=== PATIENT | female | born 1965 | race Caucasian/White ===

== ENCOUNTER → 2018-06-04 15:25 | Outpatient (CLI) | payer OTHER, SELFPAY ==
--- NOTE | 2018-06-04 15:28 | DI.RAD.S_ITS ---
PROCEDURE: XR CERVICAL SPINE 2V OR 3V INDICATIONS: Neck and low back pain TECHNIQUE: 3 view(s) of the cervical spine were acquired. COMPARISON: None. FINDINGS: Bones: No fractures or dislocations to the T1 level. The lateral masses of C1 appear intact on the odontoid view. No suspicious bony lesions. Loss of lordosis which could be related to muscle spasm, rigidity or simply positional. Grade 1 retrolisthesis C5-C6. Multilevel disc degeneration, moderate at the C6-C7 and C7-T1 levels. Mild multilevel uncovertebral hypertrophy. Soft tissues: No prevertebral soft tissue swelling. IMPRESSION: Loss of lordosis and multilevel degenerative change of the cervical spine. Dictated by: Armando Rueda Alfredo Interpreted: Dave Torres MD on 06/04/2018 at 15:57 Approved by: Dave Torres M.D. on 06/04/2018 at 16:45
--- NOTE | 2018-06-04 15:28 | DI.RAD.S_ITS ---
PROCEDURE: XR LUMBAR SPINE 2-3V INDICATIONS: Neck and low back pain TECHNIQUE: 3 views of the lumbar spine were acquired. COMPARISON: [facility], , L-SPINE 2-3 VIEWS, 11/12/2013, 12:23. FINDINGS: Bones: 5 [id number] vertebrae are present. Mild dextroscoliosis centered at the thoracolumbar level. Trace multilevel retrolisthesis. Multilevel disc degeneration, mild in degree. Moderate L5-S1 facet joint arthropathy. No vertebral body compression fractures. No suspicious bony lesions. Soft tissues: Overlying bowel gas pattern is normal. No suspicious soft tissue calcifications. IMPRESSION: Multilevel degenerative change similar to previous plain film series dated 11/12/13. Dictated by: Armando Rueda [facility] Interpreted: Dave Torres MD on 06/04/2018 at 15:54 Approved by: Dave Torres M.D. on 06/04/2018 at 16:46
== END ==
PROVIDERS: Family Provider Physician Assistant; PCP Physician Assistant; Visit Provider Physician Assistant
DX: M50.323 Other cervical disc degeneration at C6-C7 level (principal); M51.36 Other intervertebral disc degeneration, lumbar region; M54.5 Low back pain; R20.8 Other disturbances of skin sensation; M62.838 Other muscle spasm
CPT/HCPCS: 72040; 72100

== ENCOUNTER → 2018-06-09 07:56 | Outpatient (CLI) | payer OTHER, SELFPAY ==
[2018-06-09 09:16] LABS: Cholesterol 196 mg/dL (140-199); HDL Cholesterol 74 mg/dL (40-60); LDL Cholesterol Calculated 113 mg/dL (<100); Triglycerides 47 mg/dL (35-150)
== END ==
PROVIDERS: Family Provider Physician Assistant; PCP Physician Assistant; Visit Provider Physician Assistant
DX: Z13.6 Encounter for screening for cardiovascular disorders (principal); Z13.220 Encounter for screening for lipoid disorders
CPT/HCPCS: 36415; 80061

== ENCOUNTER → 2018-06-26 14:11 | Outpatient (CLI) | payer OTHER, SELFPAY ==
--- NOTE | 2018-06-26 14:12 | DI.MRI.S_ITS ---
PROCEDURE: MR CERVICAL SPINE WO CON INDICATIONS: Neck pain radiating into right shoulder/upper back TECHNIQUE: Noncontrast sagittal T1 spin echo and T2 fast spin echo, sagittal STIR, foraminal oblique sagittal T2 fast spin echo, and axial gradient echo or T2 fast spin echo through the cervical spine. COMPARISON: [facility], CR, XR CERVICAL SPINE 2V OR 3V, 06/04/2018, 15:09. [facility], RG, XR C-SPINE 4-6V, 11/25/2002, 10:56. FINDINGS: Image quality: Diagnostic, with note made of motion artifact. Alignment and Curvature: There is reversal of the normal cervical lordosis Bone Marrow: Marrow demonstrates normal overall signal. Spinal Cord: Visualized spinal cord has normal size and signal. No cerebellar tonsillar herniation. Paraspinous Soft Tissues: No paravertebral masses. Prevertebral soft tissues are normal in thickness. C2-C3: Normal appearance. C3-C4: No significant abnormality is seen. C4-C5: The disc height is well-preserved. Loss of disc signal is seen at this level. There is mild left-sided and no significant right-sided neural foraminal narrowing seen. [id number]-[id number] central canal narrowing is seen. C5-C6: Moderate loss of disc height is seen. Loss of disc signal is seen. Moderate to prominent disc osteophyte complex is seen at this level. There is moderate to severe right-sided and moderate left-sided neural foraminal narrowing seen. Moderate to severe central canal narrowing is seen, with associated mass effect upon the ventral spinal cord, as on series 5 image 30. C6-C7: Moderate disc osteophyte complex is seen, which is eccentric to the left. There is moderate left-sided and mild to moderate right-sided neural foraminal narrowing seen. [id number]-[id number] central canal narrowing is seen at this level. C7-T1: The disc height and disk signal are well-preserved. A mild degree of generalized disc osteophyte complex is seen. No significant neural foraminal or central canal narrowing are seen. IMPRESSION: Cervical spine degenerative changes are seen, which are worst at the C5-C6 level. Dictated by: Hiren Valadez M.D. on 06/26/2018 at 15:21 Approved by: Hiren Valadez M.D. on 06/26/2018 at 15:24
== END ==
PROVIDERS: Family Provider Physician Assistant; PCP Physician Assistant; Visit Provider Physician Assistant
DX: M50.122 Cervical disc disorder at C5-C6 level with radiculopathy (principal); M54.2 Cervicalgia; M79.621 Pain in right upper arm; R93.8 Abnormal findings on diagnostic imaging of other specified body structures
CPT/HCPCS: 72141

== ENCOUNTER → 2018-10-19 13:02 | Outpatient (CLI) | payer OTHER, SELFPAY ==
--- NOTE | 2018-10-19 | DI.MRI.S_ITS ---
PROCEDURE: MR LUMBAR SPINE WO CON INDICATIONS: Radiculopathy, Spondylosis without myelopathy or radiculopathy TECHNIQUE: Noncontrast sagittal T1 spin echo and T2 fast echo, sagittal STIR, axial T1 and T2 fast spin echo through the lumbar spine. In cases with scoliosis, additional coronal T2 fast spin echo may be performed. COMPARISON: [facility], MR, L-SPINE WITHOUT CONTRAST, 12/09/2014, 18:57. [facility], CR, XR LUMBAR SPINE 2-3V, 06/04/2018, 15:09. [facility], MR, L-SPINE WITHOUT CONTRAST, 11/30/2013, 14:26. FINDINGS: Image quality: Diagnostic, with note made of motion artifact. Alignment and Curvature: Mild dextroconvex scoliotic curvature is seen. Bone Marrow: Marrow is of normal overall signal. No acute vertebral body compression fractures. Spinal Cord: Conus medullaris terminates at the L1 level. Visualized cord demonstrates normal signal and size. Paraspinous Soft Tissues: No paravertebral masses. T12-L1: No significant abnormality is seen. L1-L2: Mild to moderate loss of disc height and disc signal are seen. Mild to moderate disc bulge is seen. There is mild to moderate left-sided and no significant right-sided neural foraminal narrowing seen. Mild central canal narrowing is seen. When comparison is made with the prior examination, these findings are similar. L2-L3: Mild loss of disc height is seen. Loss of disc signal is seen. Mild to moderate disc bulge is seen. Mild to moderate facet hypertrophy is seen. There is mild to moderate left-sided and mild right-sided neural foraminal narrowing seen. Mild central canal narrowing is seen. Stable from the prior study. L3-L4: The disc height and disc signal are relatively well-preserved. Moderate loss of disc height is seen. Loss of disc signal is seen. No significant neural foraminal narrowing is seen. No significant central canal narrowing. No significant change from the prior. L4-L5: Mild loss of disc height is seen. Loss of disc signal is seen. Moderate generalized disc bulge is seen. There is mild to moderate left-sided and minimal right-sided neural foraminal narrowing seen. Mild to moderate central canal narrowing is seen. The degree of central canal narrowing has clearly improved compared to the prior examination, with progression of the previously seen disc extrusion. L5-S1: The disc height and disc signal are relatively well-preserved. Mild generalized disc bulge is seen. Moderate to prominent right-sided and moderate left-sided facet hypertrophy is seen. Moderate bilateral neural foraminal narrowing is seen. Mild to moderate central canal narrowing is seen. When comparison is made with the prior examination, these findings are similar. IMPRESSION: Interval improvement at the L4-L5 level, with progression of the previously seen disc extrusion. Multiple levels of degenerative change are seen, which are otherwise similar. Mild dextroconvex scoliotic curvature. Dictated by: Hiren Valadez M.D. on 10/19/2018 at 13:38 Approved by: Hiren Valadez M.D. on 10/19/2018 at 13:45
== END ==
PROVIDERS: Family Provider Physician Assistant; PCP Physician Assistant; Visit Provider Neurological Surgery
DX: M47.26 Other spondylosis with radiculopathy, lumbar region (principal); M47.27 Other spondylosis with radiculopathy, lumbosacral region
CPT/HCPCS: 72148

== ENCOUNTER → 2019-08-13 13:05 | Outpatient (CLI) | payer OTHER, SELFPAY | PROVIDERS: Family Provider Physician Assistant; PCP Physician Assistant; Visit Provider Physician Assistant | DX: Z78.0 Asymptomatic menopausal state (principal); E28.39 Other primary ovarian failure; Z82.62 Family history of osteoporosis | CPT/HCPCS: 77080 ==

== ENCOUNTER → 2019-08-14 08:25 | Outpatient (CLI) | payer OTHER, SELFPAY ==
[2019-08-14 09:06] LABS: Alanine Aminotransferase 13 IU/L (<35); Albumin 4.4 g/dL (3.5-5.0); Albumin Globulin Ratio 1.6 (1.0-2.8); Alkaline Phosphatase 54 U/L (38-126); Aspartate Aminotransferase 26 IU/L (14-36); BUN Creatinine Ratio 18.3 (6-22); Bilirubin Total 0.6 mg/dL (0.2-1.3); Blood Urea Nitrogen 11 mg/dL (7-17); Calcium 9.4 mg/dL (8.4-10.2); Carbon Dioxide 26 mmol/L (22-32); Chloride 100 mmol/L (98-107); Cholesterol 210 mg/dL (140-199); Estimated Glomerular Filt Rate > 60.0 mL/min (>60); Globulin 2.8 g/dL (1.7-4.1); Glucose 93 mg/dL (70-100); HDL Cholesterol 63 mg/dL (40-60); HEMOLYSIS < 15 (0-50); LDL Cholesterol Calculated 130 mg/dL (<100); Sodium 137 mmol/L (137-145); Total Protein 7.2 g/dL (6.3-8.2); Triglycerides 83 mg/dL (35-150)
== END ==
PROVIDERS: Family Provider Physician Assistant; PCP Physician Assistant; Visit Provider Physician Assistant
DX: E78.5 Hyperlipidemia, unspecified (principal); I49.9 Cardiac arrhythmia, unspecified
CPT/HCPCS: 36415; 80053; 80061

== ENCOUNTER → 2021-07-19 08:51 | Outpatient (CLI) | payer OTHER, SELFPAY ==
[2021-07-19 09:44] LABS: Add Manual Diff / Slide Review NO; Basophils Absolute Auto 0 /uL (0-100); Basophils Percent Auto 0.9 % (0-2); Eosinophils Absolute Auto 100 /uL (0-450); Eosinophils Percent Auto 1.2 % (2-4); Hematocrit 38.2 % (36-46); Hemoglobin 12.6 g/dL (12.0-16.0); Lymphocytes Absolute Auto 2100 /uL (1100-4500); Lymphocytes Percent Auto 39.7 % (25-40); Mean Corpuscular Hemoglobin 30.1 PG (26-34); Mean Corpuscular Volume 91.2 fL (80-100); Monocytes Absolute Auto 400 /uL (0-900); Neutrophils Absolute Auto 2700 /uL (1500-7000); Neutrophils Percent Auto 50.2 % (50-75); Platelet Count 255 X10^3/uL (150-400); Red Blood Cell Count 4.19 X10^6/uL (4.0-5.2); Red Cell Distribution Width 13.3 % (11.6-14.8); White Blood Cell Count 5.4 X10^3/uL (4.5-11.0)
[2021-07-19 10:07] LABS: Alanine Aminotransferase 20 IU/L (<35); Albumin 4.4 g/dL (3.5-5.0); Albumin Globulin Ratio 1.5 (1.0-2.8); Alkaline Phosphatase 57 U/L (38-126); Aspartate Aminotransferase 31 IU/L (14-36); BUN Creatinine Ratio 22.6 (6-22); Bilirubin Total 0.3 mg/dL (0.2-1.3); Blood Urea Nitrogen 12 mg/dL (7-17); Calcium 9.5 mg/dL (8.4-10.2); Carbon Dioxide 29 mmol/L (22-32); Chloride 100 mmol/L (98-107); Cholesterol 225 mg/dL (140-199); Estimated Glomerular Filt Rate > 60.0 mL/min (>60); Globulin 2.9 g/dL (1.7-4.1); Glucose 94 mg/dL (70-100); HDL Cholesterol 67 mg/dL (40-60); HEMOLYSIS < 15 (0-50); LDL Cholesterol Calculated 143 mg/dL (<100); Potassium 3.9 mmol/L (3.4-5.1); Sodium 136 mmol/L (137-145); Total Protein 7.3 g/dL (6.3-8.2); Triglycerides 76 mg/dL (35-150)
[2021-07-19 10:35] LABS: TSH w/ Reflex to FT4 2.52 uIU/mL (0.47-4.68)
== END ==
PROVIDERS: Family Provider Physician Assistant; PCP Registered Nurse Diabetes Educator; Referring Provider Registered Nurse Diabetes Educator; Visit Provider Registered Nurse Diabetes Educator
DX: E78.5 Hyperlipidemia, unspecified (principal); R53.83 Other fatigue
CPT/HCPCS: 36415; 80053; 80061; 84443; 85025

== ENCOUNTER → 2021-10-30 12:04 | Outpatient (CLI) | payer OTHER, SELFPAY ==
--- NOTE | 2021-10-30 12:05 | DI.RAD.S_ITS ---
PROCEDURE: XR LUMBAR SPINE MIN 4V INDICATIONS: eval worsening RLE numbness/weakness TECHNIQUE: 5 views of the lumbar spine were acquired, including bilateral oblique views. COMPARISON: [facility], , XR LUMBAR SPINE 2-3V, 06/04/2018, 15:09. FINDINGS: Bones: 5 nonrib-bearing vertebrae are present. Stable alignment with mild dextrocurvature centered at L2-3. No acute vertebral body compression fractures. No suspicious bony lesions. Multilevel lumbar spondylosis and associated facet arthropathy. Findings are again most pronounced in the upper lumbar spine. Soft tissues: Overlying bowel gas pattern is normal. No suspicious soft tissue calcifications. Oblique images: No pars defects. IMPRESSION: Lumbar spine without acute osseous abnormalities. Stable appearance of multilevel lumbar spondylosis. Stable alignment with mild dextro curvature centered at L2-3. Dictated by: Aly Garces M.D. on 10/30/2021 at 17:21 Approved by: Aly Garces M.D. on 10/30/2021 at 17:23
== END ==
PROVIDERS: Family Provider Physician Assistant; PCP Registered Nurse Diabetes Educator; Referring Provider Registered Nurse Diabetes Educator; Visit Provider Registered Nurse Diabetes Educator
DX: M47.816 Spondylosis without myelopathy or radiculopathy, lumbar region (principal); M51.36 Other intervertebral disc degeneration, lumbar region
CPT/HCPCS: 72110

== ENCOUNTER → 2022-08-22 17:41 | Outpatient (CLI) | payer OTHER, SELFPAY ==
--- NOTE | 2022-08-22 18:23 | DI.RAD.S_ITS ---
PROCEDURE: XR CHEST 2V INDICATIONS: Cough TECHNIQUE: 2 views of the chest were acquired. COMPARISON: None. FINDINGS: Surgical changes and devices: None. Lungs and pleura: Lungs are clear. No pleural effusions or pneumothorax. Mediastinum: Mediastinal contours are normal. Heart size is normal. Bones and chest wall: No suspicious bony abnormalities. Soft tissues appear unremarkable. IMPRESSION: No acute cardiopulmonary pathology. Dictated by: Tone Connor M.D. on 08/23/2022 at 13:05 Approved by: Tone Connor M.D. on 08/23/2022 at 13:06
[2022-08-22 18:56] LABS: Influenza A - CEPHEID Flu A NEGATIVE (NEGATIVE); Influenza B - CEPHEID Flu B NEGATIVE (NEGATIVE); Respiratory Syncytial Virus POSITIVE (Negative)
[2022-08-22 18:57] LABS: COVID-19 CEPHEID 4-PLEX PCR Negative (Negative)
== END ==
PROVIDERS: Family Provider Physician Assistant; PCP Family Medicine; Referring Provider Nurse Practitioner Family; Visit Provider Nurse Practitioner Family
DX: R50.9 Fever, unspecified (principal); R05.9 Cough, unspecified
CPT/HCPCS: 0241U; 71046

== ENCOUNTER → 2022-09-18 08:56 | Outpatient (CLI) | payer OTHER, SELFPAY ==
[2022-09-18 09:20] LABS: Add Manual Diff / Slide Review NO; Basophils Absolute Auto 0 /uL (0-100); Basophils Percent Auto 0.8 % (0-2); Eosinophils Absolute Auto 100 /uL (0-450); Eosinophils Percent Auto 2.7 % (2-4); Hematocrit 35.1 % (36-46); Lymphocytes Absolute Auto 1800 /uL (1100-4500); Lymphocytes Percent Auto 36.6 % (25-40); Mean Corpuscular HGB Conc 34.2 % (30-36); Mean Corpuscular Hemoglobin 30.8 PG (26-34); Monocytes Absolute Auto 500 /uL (0-900); Monocytes Percent Auto 9.3 % (3-14); Neutrophils Absolute Auto 2500 /uL (1500-7000); Neutrophils Percent Auto 50.6 % (50-75); Platelet Count 227 X10^3/uL (150-400); Red Cell Distribution Width 12.7 % (11.6-14.8); White Blood Cell Count 4.9 X10^3/uL (4.5-11.0)
[2022-09-18 09:43] LABS: Alanine Aminotransferase 20 IU/L (<35); Albumin 3.9 g/dL (3.5-5.0); Albumin Globulin Ratio 1.4 (1.0-2.8); Alkaline Phosphatase 54 U/L (38-126); Aspartate Aminotransferase 24 IU/L (14-36); BUN Creatinine Ratio 18.2 (6-22); Bilirubin Total 0.4 mg/dL (0.2-1.3); Blood Urea Nitrogen 12 mg/dL (7-17); Carbon Dioxide 27 mmol/L (22-32); Chloride 98 mmol/L (98-107); Cholesterol 212 mg/dL (140-199); Estimated Glomerular Filt Rate > 60 mL/min (>60); Globulin 2.7 g/dL (1.7-4.1); Glucose 92 mg/dL (70-100); HDL Cholesterol 59 mg/dL (40-60); HEMOLYSIS < 15 (0-50); LDL Cholesterol Calculated 135 mg/dL (<100); Potassium 4.1 mmol/L (3.4-5.1); Sodium 131 mmol/L (137-145); Total Protein 6.6 g/dL (6.3-8.2); Triglycerides 90 mg/dL (35-150)
== END ==
PROVIDERS: Family Provider Physician Assistant; PCP Family Medicine; Referring Provider Family Medicine; Visit Provider Family Medicine
DX: E78.5 Hyperlipidemia, unspecified (principal)
CPT/HCPCS: 36415; 80053; 80061; 85025

== ENCOUNTER → 2023-07-04 08:36 | Outpatient (CLI) | payer OTHER, SELFPAY ==
[2023-07-04 08:59] LABS: Add Manual Diff / Slide Review NO; Basophils Absolute Auto 0 /uL (0-100); Basophils Percent Auto 0.8 % (0-2); Eosinophils Absolute Auto 100 /uL (0-450); Eosinophils Percent Auto 1.1 % (2-4); Hematocrit 36.3 % (36-46); Hemoglobin 12.3 g/dL (12.0-16.0); Lymphocytes Absolute Auto 2100 /uL (1100-4500); Lymphocytes Percent Auto 42.6 % (25-40); Mean Corpuscular HGB Conc 33.8 % (30-36); Mean Corpuscular Volume 91.7 fL (80-100); Monocytes Absolute Auto 500 /uL (0-900); Monocytes Percent Auto 10.3 % (3-14); Neutrophils Absolute Auto 2200 /uL (1500-7000); Neutrophils Percent Auto 45.2 % (50-75); Platelet Count 238 X10^3/uL (150-400); Red Blood Cell Count 3.96 X10^6/uL (4.0-5.2); Red Cell Distribution Width 12.6 % (11.6-14.8)
[2023-07-04 09:59] LABS: Erythrocyte Sedimentation Rate 16 MM/HR (0-20)
[2023-07-04 17:40] LABS: Alanine Aminotransferase 16 IU/L (<35); Albumin Globulin Ratio 1.4 (1.0-2.8); Alkaline Phosphatase 48 U/L (38-126); Aspartate Aminotransferase 24 IU/L (14-36); BUN Creatinine Ratio 11.9 (6-22); Bilirubin Total 0.5 mg/dL (0.2-1.3); Blood Urea Nitrogen 7 mg/dL (7-17); Calcium 9.6 mg/dL (8.4-10.2); Carbon Dioxide 26 mmol/L (22-32); Chloride 101 mmol/L (98-107); Estimated Glomerular Filt Rate > 60 mL/min (>60); Globulin 2.8 g/dL (1.7-4.1); Glucose 96 mg/dL (70-100); HEMOLYSIS < 15 (0-50); Potassium 4.1 mmol/L (3.4-5.1); Sodium 132 mmol/L (137-145); Total Protein 6.8 g/dL (6.3-8.2)
== END ==
PROVIDERS: Family Provider Physician Assistant; PCP Family Medicine; Referring Provider Physician Assistant; Visit Provider Physician Assistant
DX: K58.0 Irritable bowel syndrome with diarrhea (principal)
CPT/HCPCS: 36415; 80053; 85025; 85651; 86140

== ENCOUNTER → 2023-09-15 11:07 | Outpatient (CLI) | payer OTHER, SELFPAY ==
--- NOTE | 2023-09-15 11:09 | DI.MRI.S_ITS ---
PROCEDURE: MR LUMBAR SPINE WO CON INDICATIONS: worsening radiculopathy and pain TECHNIQUE: Noncontrast sagittal T1 spin echo and T2 fast echo, sagittal STIR, and T2 fast spin echo through the lumbar spine. In cases with scoliosis, additional coronal T2 fast spin echo may be performed. COMPARISON: [facility], MR, MR LUMBAR SPINE WO CON, 10/19/2018, 13:45. FINDINGS: Image quality: Excellent. Alignment and Curvature: There is normal bony alignment. Bone Marrow: L4 vertebral body typical hemangioma Spinal Cord: Conus medullaris terminates at the L1 level. Visualized cord demonstrates normal signal and size. Paraspinous Soft Tissues: No paravertebral masses. T12-L1: Disc space narrowing and posterior disc bulge without central or foraminal stenosis. L1-L2: Disc space narrowing and posterior disc bulge with hypertrophic facet joints. No central or foraminal stenosis. L2-L3: Disc space narrowing and circumferential disc bulge with hypertrophic facet joints combined result in moderate central stenosis. Moderate left and mild right foraminal stenosis L3-L4: Disc space narrowing and circumferential disc bulge with hypertrophic facet joints. Moderate central stenosis. Mild bilateral foraminal stenosis L4-L5: Disc space narrowing and circumferential disc bulge with mild central stenosis. No foraminal stenosis. L5-S1: Disc height is preserved. Hypertrophic facet joints mild disc bulge without central stenosis. No foraminal stenosis. IMPRESSION: Multilevel degenerative disc disease and arthropathy results in varying degrees of central and foraminal stenosis including moderate central stenosis L2-3 and L3-4 Approved by: Tiago Knott M.D. on 09/15/2023 at 14:35
== END ==
PROVIDERS: Family Provider Physician Assistant; PCP Family Medicine; Referring Provider Neurological Surgery; Visit Provider Neurological Surgery
DX: M51.16 Intervertebral disc disorders with radiculopathy, lumbar region (principal); M51.17 Intervertebral disc disorders with radiculopathy, lumbosacral region; M48.061 Spinal stenosis, lumbar region without neurogenic claudication; M47.26 Other spondylosis with radiculopathy, lumbar region; M47.27 Other spondylosis with radiculopathy, lumbosacral region; G89.29 Other chronic pain
CPT/HCPCS: 72148

== ENCOUNTER → 2023-11-15 08:48 | Outpatient (CLI) | payer OTHER, SELFPAY ==
[2023-11-15 09:38] LABS: Cholesterol 194 mg/dL (140-199); HDL Cholesterol 62 mg/dL (40-60); LDL Cholesterol Calculated 114 mg/dL (<100); Triglycerides 89 mg/dL (35-150)
== END ==
LOC: LAB 08:49
PROVIDERS: Family Provider Physician Assistant; PCP Family Medicine; Referring Provider Family Medicine; Visit Provider Family Medicine
DX: E78.5 Hyperlipidemia, unspecified (principal)
CPT/HCPCS: 36415; 80061

== ENCOUNTER → 2023-11-21 09:17 | Outpatient (CLI) | payer OTHER, SELFPAY | PROVIDERS: Family Provider Physician Assistant; PCP Family Medicine; Visit Provider Family Medicine | DX: N39.0 Urinary tract infection, site not specified (principal); R31.9 Hematuria, unspecified | CPT/HCPCS: 87086 ==

== ENCOUNTER 2024-09-13 17:48 | Emergency (ER) | payer OTHER, SELFPAY ==
[2024-09-13 17:53] VITALS: BP 143/73; PULSE 126; RESP 20; TEMP 36.7; O2SAT 100; BMI 21.1
--- NOTE | 2024-09-13 18:10 | ED_ITS ---
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 No swelling of tongue, lips, face, eyelids. She denies abdominal discomfort, diarrhea. Denies chest pain shortness of breath. She says that she has a baseline fast heart rate around 100. She last took Benadryl 1:00 p.m. today. She has not taking systemic steroids. Related Data Home Medications Medication Instructions Recorded Confirmed aspirin 81 mg tablet,delayed 81 mg PO ONCE PRN 03/02/19 11/21/23 release (Adult Low Dose Aspirin) lansoprazole 15 mg delayed mg PO 09/11/24 09/11/24 release,disintegrating tablet Previous Rx's Medication Instructions Recorded estradiol 1 mg tablet 1 mg PO DAILY #90 tabs 07/14/24 progesterone micronized 100 mg See Rx Instructions .Route 09/01/24 capsule .COMPLEX #90 caps fluconazole 150 mg tablet 150 mg PO Q3D 2 doses #2 tabs 09/11/24 prednisone 20 mg tablet 40 mg (2 x 20 mg) PO DAILY 5 days 09/13/24 #10 tabs Allergies Allergy/AdvReac Type Severity Reaction Status Date / Time neomycin Allergy Verified 09/13/24 18:57 rifaximin Allergy Verified 09/13/24 18:57 gabapentin AdvReac Intermediate made me Verified 09/13/24 18:00 really groggy and stupid. iodine [IODINE] AdvReac Intermediate FLUSHING Verified 09/13/24 18:00 Review of Systems Review of Systems Narrative: See HPI Patient History Medical History Hx of moderate sun exposure Irritable bowel syndrome with diarrhea Loose stools Abdominal bloating Excessive cerumen in right ear canal Chronic right-sided low back pain with right-sided sciatica Counseling for travel Skin lesion of chest wall Lumbar degenerative disc disease Chronic migraine w/o aura w/o status migrainosus, not intractable Hot flashes, menopausal Heart palpitations Chickenpox Scoliosis Anxiety Surgical History History of breast augmentation Family History Father History of MD (myocardial infarction) Hypercholesteremia Hx of CABG Grandmother Breast cancer Mother No problems noted. Social History Smoking Status: Never smoker second hand exposure: No alcohol intake: current (wine occasionally) substance use type: does not use Smoking Status: Never smoker Exam Narrative Exam Narrative: GENERAL: Well-developed patient, in mild distress. HEAD: Atraumatic. Normocephalic. EYES: Pupils equal round and reactive. Extraocular motions intact. No scleral icterus. No injection or drainage. ENT: Nose without bleeding, purulent drainage. Throat without erythema, tonsillar hypertrophy or exudate. Airway patent. NECK: Trachea midline. Non tender CARDIOVASCULAR: Fast rate regular rhythm, no gallops, or rubs. RESPIRATORY: Clear to auscultation. Breath sounds equal bilaterally. No wheezes, rales, or rhonchi. GASTROINTESTINAL: Abdomen soft, non-tender, nondistended. EXTREMITIES: No edema or joint tenderness. BACK: Nontender without deformity or crepitance. No flank tenderness. NEURO: AOx3. Motor functions grossly nonfocal SKIN: No rash or erythema of visible areas. Urticarial plaques dorsal and ventral torso, upper neck region, to hip creases. Initial Vital Signs Initial Vital Signs: Vital Signs Temperature 98.0 F 09/13/24 17:53 Pulse Rate 126 H 09/13/24 17:53 Respiratory Rate 20 09/13/24 17:53 Blood Pressure 143/73 H 09/13/24 17:53 Pulse Oximetry 100 09/13/24 17:53 Oxygen Delivery Method Room Air 09/13/24 17:53 Course Orders Ordered: Discontinued Medications Diphenhydramine HCl (Diphenhydramine 50 Mg/Ml Vial) 50 mg IV NOW ONE Stop: 09/13/24 18:10 Last Admin: 09/13/24 18:25 Dose: 50 mg Documented By: LUNA Famotidine (Famotidine 20 Mg/2 Ml Vial) 20 mg IV NOW LOPEZ Last Admin: 09/13/24 18:25 Dose: 20 mg Documented By: LUNA Methylprednisolone (Methylprednisolone 125 Mg/2 Ml Vial) 125 mg IV NOW ONE Stop: 09/13/24 18:10 Last Admin: 09/13/24 18:25 Dose: 125 mg Documented By: LUNA Vital Signs Vital signs: Vital Signs - 8 hr 09/13/24 17:53 09/13/24 18:30 09/13/24 18:36 Temperature 98.0 F Pulse Rate 126 H 104 H Respiratory Rate 20 Blood Pressure 143/73 H 144/88 H Pulse Oximetry 100 99 Oxygen Delivery Method Room Air 09/13/24 18:36 09/13/24 19:00 09/13/24 19:00 Temperature Pulse Rate 102 H 105 H Respiratory Rate 21 17 Blood Pressure 133/80 Pulse Oximetry 100 99 Oxygen Delivery Method MDM - Allergic Reaction MDM Narrative Medical decision making narrative: 59-year-old female with history of recent antibiotic exposure for possible IMO, taking rifaximin and neomycin, stopped 5 days ago with onset of itching rash, no better after steroid injection from walk-in clinic 3 days ago, taking oral antihistamines, still having itching today. Afebrile, normotensive, sinus tachycardia noted, history of tachycardia reported. We will add IV Solu-Medrol, Benadryl, famotidine. We will hold IM epinephrine for now. 1945, patient feels significantly improved, heart rate 95 noted, patient would like to go home. Further prescription steroid prednisone sent to her pharmacy. Encouraged take [id number]-[id number] Benadryl antihistamine 2 tablets 4 times daily for the next few days as well. Follow up with her PCP advised for follow up IMO. Return precautions discussed as well. Discharge Plan Departure Patient Disposition: Home Clinical Impression: Allergic reaction due to antibacterial drug Activity Restrictions/Additional Instructions: Allergic reaction after exposure to dual antibiotic regimen for treatment of suspected IMO. Twelve of 14 and 10 days of antibiotics were completed before stopping antibiotic and number of days ago, steroid injection in clinic for itching. Symptoms persisting. IV Solu-Medrol steroid and IV Benadryl given. Symptoms significantly improved. Consider taking further steroid, prednisone pulse doses daily the next 5 days sent to your pharmacy. Take [id number] Benadryl 25 mg tablets 2 tablets 4 times daily for the next few days as well. Follow up with your regular doctor as planned for IM0 follow up. Return to t his/nearest emergency department for any change worsening symptoms or any concerns prior Prescriptions: New prednisone 20 mg tablet 40 mg PO DAILY 5 Days Qty: 10 0RF No Action fluconazole 150 mg tablet 150 mg PO Q3D Qty: 2 0RF lansoprazole 15 mg tablet,disintegrat, delay rel PO estradiol 1 mg tablet 1 mg PO DAILY Qty: 90 1RF progesterone micronized 100 mg capsule See Rx Instructions .ROUTE .COMPLEX Qty: 90 3RF Dose Instruction: TAKE ONE CAPSULE BY MOUTH NIGHTLY AT BEDTIME Rx Instructions: TAKE ONE CAPSULE BY MOUTH NIGHTLY AT BEDTIME aspirin [Adult Low Dose Aspirin] 81 mg tablet,delayed release (DR/EC) 81 mg PO ONCE PRN Referrals: Silas Paez DO [Primary Care Provider] - Stand Alone Forms: Patient Portal/API/Survey
[2024-09-13] MEDS: diphenhydrAMINE 50 MG/ML VIAL IV (18:25)
[2024-09-13] MEDS: methylPREDNISolone 125 MG/2 ML VIAL IV (18:25)
[2024-09-13] MEDS: FAMOTIDINE 20 MG/2 ML VIAL IV (18:25)
[2024-09-13 18:30] VITALS: PULSE 104; O2SAT 99
[2024-09-13 18:36] VITALS: BP 144/88; PULSE 102; RESP 21; O2SAT 100
[2024-09-13 19:00] VITALS: BP 133/80; PULSE 105; RESP 17; O2SAT 99
[2024-09-13 19:30] VITALS: BP 145/72; PULSE 99; RESP 15; O2SAT 98
== END 2024-09-13 19:55 | disposition home or self-care (01) ==
PROVIDERS: Emergency Provider Emergency Medicine; PCP Family Medicine
DX: R21 Rash and other nonspecific skin eruption (principal); T36.95XA Adverse effect of unspecified systemic antibiotic, initial encounter
CPT/HCPCS: 36415; 96374; 96375; 99284; J1200; J2919

== ENCOUNTER → 2024-11-09 10:10 | Outpatient (CLI) | payer OTHER, SELFPAY | PROVIDERS: PCP Family Medicine; Visit Provider Family Medicine | DX: R39.9 Unspecified symptoms and signs involving the genitourinary system (principal) | CPT/HCPCS: 87077; 87086; 87186 ==

== ENCOUNTER → 2024-11-10 09:10 | Outpatient (CLI) | payer OTHER, SELFPAY ==
[2024-11-10 09:42] LABS: Add Manual Diff / Slide Review NO; Basophils Absolute Auto 100 /uL (0-100); Basophils Percent Auto 0.7 % (0-2); Eosinophils Absolute Auto 100 /uL (0-450); Eosinophils Percent Auto 0.7 % (2-4); Hematocrit 40.1 % (36-46); Hemoglobin 13.5 g/dL (12.0-16.0); Lymphocytes Absolute Auto 2000 /uL (1100-4500); Lymphocytes Percent Auto 25.9 % (25-40); Mean Corpuscular HGB Conc 33.6 % (30-36); Mean Corpuscular Hemoglobin 30.7 PG (26-34); Mean Corpuscular Volume 91.4 fL (80-100); Monocytes Absolute Auto 800 /uL (0-900); Monocytes Percent Auto 10.4 % (3-14); Neutrophils Absolute Auto 4900 /uL (1500-7000); Neutrophils Percent Auto 62.3 % (50-75); Platelet Count 239 X10^3/uL (150-400); Red Blood Cell Count 4.39 X10^6/uL (4.0-5.2); Red Cell Distribution Width 14.2 % (11.6-14.8); White Blood Cell Count 7.9 X10^3/uL (4.5-11.0)
[2024-11-10 10:02] LABS: Alanine Aminotransferase 17 IU/L (<35); Albumin 4.4 g/dL (3.5-5.0); Albumin Globulin Ratio 1.5 (1.0-2.8); Alkaline Phosphatase 60 U/L (38-126); Aspartate Aminotransferase 32 IU/L (14-36); BUN Creatinine Ratio 10.9 (6-22); Bilirubin Total 0.7 mg/dL (0.2-1.3); Blood Urea Nitrogen 13 mg/dL (7-17); Calcium 9.9 mg/dL (8.4-10.2); Carbon Dioxide 26 mmol/L (22-32); Chloride 99 mmol/L (98-107); Cholesterol 244 mg/dL (140-199); Estimated Glomerular Filt Rate 53 mL/min (>60); Globulin 2.9 g/dL (1.7-4.1); Glucose 97 mg/dL (70-100); HDL Cholesterol 79 mg/dL (40-60); HEMOLYSIS < 15 (0-50); LDL Cholesterol Calculated 150 mg/dL (<100); Potassium 4.2 mmol/L (3.4-5.1); Sodium 133 mmol/L (137-145); Total Protein 7.3 g/dL (6.3-8.2); Triglycerides 76 mg/dL (35-150)
[2024-11-10 10:16] LABS: Vitamin D 25 Hydroxy (D3) 45.3 ng/mL (30.0-100.0)
[2024-11-10 10:30] LABS: TSH w/ Reflex to FT4 2.06 uIU/mL (0.47-4.68)
== END ==
LOC: LAB 09:11
PROVIDERS: PCP Family Medicine; Referring Provider Family Medicine; Visit Provider Family Medicine
DX: E78.5 Hyperlipidemia, unspecified (principal); I49.9 Cardiac arrhythmia, unspecified; R00.0 Tachycardia, unspecified
CPT/HCPCS: 36415; 80053; 80061; 82306; 84443; 85025

== ENCOUNTER → 2024-11-29 09:01 | Outpatient (CLI) | payer OTHER, SELFPAY ==
[2024-11-29 10:14] LABS: BUN Creatinine Ratio 17.4 (6-22); Blood Urea Nitrogen 12 mg/dL (7-17); Estimated Glomerular Filt Rate > 60 mL/min (>60)
[2024-11-29 10:41] LABS: Creatinine Urine Random 126.11 mg/dL
[2024-11-29 10:49] LABS: Microalbumin Urine Random < 0.6 mg/dL (0-1.6)
== END ==
PROVIDERS: PCP Family Medicine; Referring Provider Family Medicine; Visit Provider Family Medicine
DX: N18.9 Chronic kidney disease, unspecified (principal)
CPT/HCPCS: 36415; 82043; 82565; 82570; 84520

== ENCOUNTER → 2025-03-28 10:03 | Outpatient (CLI) | payer OTHER, SELFPAY ==
[2025-03-28 10:55] LABS: Add Manual Diff / Slide Review NO; Basophils Absolute Auto 0 /uL (0-100); Basophils Percent Auto 0.8 % (0-2); Eosinophils Absolute Auto 100 /uL (0-450); Eosinophils Percent Auto 2.9 % (2-4); Hematocrit 34.5 % (36-46); Hemoglobin 11.5 g/dL (12.0-16.0); Lymphocytes Absolute Auto 2000 /uL (1100-4500); Lymphocytes Percent Auto 39.9 % (25-40); Mean Corpuscular HGB Conc 33.4 % (30-36); Mean Corpuscular Hemoglobin 31.1 PG (26-34); Mean Corpuscular Volume 93.1 fL (80-100); Monocytes Absolute Auto 400 /uL (0-900); Monocytes Percent Auto 8.3 % (3-14); Neutrophils Absolute Auto 2400 /uL (1500-7000); Neutrophils Percent Auto 48.1 % (50-75); Platelet Count 235 X10^3/uL (150-400); Red Cell Distribution Width 12.8 % (11.6-14.8)
[2025-03-28 11:26] LABS: Alanine Aminotransferase 13 IU/L (<35); Albumin 3.8 g/dL (3.5-5.0); Albumin Globulin Ratio 1.6 (1.0-2.8); Alkaline Phosphatase 48 U/L (38-126); Aspartate Aminotransferase 23 IU/L (14-36); Bilirubin Total 0.6 mg/dL (0.2-1.3); Blood Urea Nitrogen 14 mg/dL (7-17); Calcium 9.1 mg/dL (8.4-10.2); Carbon Dioxide 25 mmol/L (22-32); Chloride 101 mmol/L (98-107); Cholesterol 190 mg/dL (140-199); Estimated Glomerular Filt Rate > 60 mL/min (>60); Globulin 2.4 g/dL (1.7-4.1); Glucose 105 mg/dL (70-99); HDL Cholesterol 58 mg/dL (40-60); HEMOLYSIS < 15 (0-50); LDL Cholesterol Calculated 115 mg/dL (<100); Potassium 4.3 mmol/L (3.4-5.1); Sodium 132 mmol/L (137-145); Total Protein 6.2 g/dL (6.3-8.2); Triglycerides 84 mg/dL (35-150)
[2025-03-28 11:42] LABS: Free T4, Direct Thyroxine 1.14 ng/dL (0.78-2.19)
[2025-03-28 11:55] LABS: Thyroid Stimulating Hormone 1.48 uIU/mL (0.47-4.68)
[2025-03-29 07:36] LABS: Triiodothyronine T3 Total 113 ng/dL (71-180)
== END ==
PROVIDERS: PCP Family Medicine; Referring Provider Family Medicine; Visit Provider Internal Medicine Cardiovascular Disease
DX: R00.0 Tachycardia, unspecified (principal); R00.2 Palpitations; N18.9 Chronic kidney disease, unspecified; E78.5 Hyperlipidemia, unspecified
CPT/HCPCS: 36415; 80053; 80061; 84439; 84443; 84480; 85025

== ENCOUNTER → 2025-06-29 08:49 | Outpatient (CLI) | payer OTHER, SELFPAY ==
[2025-06-29 09:49] LABS: Add Manual Diff / Slide Review NO; Hematocrit 34.7 % (36-46); Hemoglobin 11.9 g/dL (12.0-16.0); Lymphocytes Absolute Auto 2300 /uL (1100-4500); Mean Corpuscular HGB Conc 34.3 % (30-36); Mean Corpuscular Hemoglobin 31.2 PG (26-34); Mean Corpuscular Volume 90.9 fL (80-100); Platelet Count 229 X10^3/uL (150-400)
[2025-06-29 10:13] LABS: Sodium 131 mmol/L (137-145)
== END ==
PROVIDERS: PCP Family Medicine; Referring Provider Family Medicine; Visit Provider Family Medicine
DX: D64.9 Anemia, unspecified (principal); E87.1 Hypo-osmolality and hyponatremia
CPT/HCPCS: 36415; 84295; 85025